=== PATIENT | male | born 2005 | race Caucasian/White ===

== ENCOUNTER 2024-03-08 18:18 | Emergency (ER) | payer OTHER ==
[2024-03-08] MEDS: Diphtheria,Pertussis(Acell),Tetanus Vaccine 0.5 ML Syringe IM ONE (18:34)
[2024-03-08] MEDS: Bacitracin/Neomycin/Polymyxin B Oint 28.4 GM Tube TOP ONE (19:21)
[2024-03-09] MEDS: Mupirocin Oint 22 GM Tube TOP ONE (02:42)
[2024-03-09] MEDS: Bacitracin/Neomycin/Polymyxin B Oint 28.4 GM Tube ONE (02:42)
== END 2024-03-08 20:10 | disposition home or self-care (01) ==
LOC: KA.ED 18:18
DX: S70.02XA Contusion of left hip, initial encounter (principal); S70.01XA Contusion of right hip, initial encounter; S50.312A Abrasion of left elbow, initial encounter; S50.311A Abrasion of right elbow, initial encounter; Z91.013 Allergy to seafood; Z23 Encounter for immunization; V29.99XA Rider (driver) (passenger) of other motorcycle injured in unspecified traffic accident, initial encounter
CPT/HCPCS: 71046; 72170; 73070-LT; 73070-RT; 90471; 90715; 99284-25